=== PATIENT | male | born 1990 | race Caucasian/White ===

== ENCOUNTER 2017-12-28 20:59 | Emergency (ER) | payer MEDICAID ==
[~2017-12-28] VITALS: Ht 180.3 cm; Wt 122.5 kg
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
--- NOTE | 2017-12-28 21:23 | NUR ---
XRAY AT BEDSIDE.
[2017-12-28] MEDS ORDERED: NAPROXEN 500 MG TABLET ONE (21:41)
[2017-12-28] MEDS ORDERED: NAPROXEN 500 MG TABLET PO ONE (21:45)
[2017-12-28 21:57] VITALS: BP 137/76
--- NOTE | 2017-12-28 21:59 | NUR ---
Patient discharged to home in stable conditon WITH TAKING PATIENT HOME. Written and verbal after care instructions given. Patient verbalizes understanding of instructions. WALKED OUT OF ER WITH STEADY GAIT. NO DISTRESS NOTED
== END 2017-12-28 22:00 | disposition home or self-care (01) ==
LOC: ER 21:03
DX: R07.89 Other chest pain (principal); M54.5 Low back pain; F17.200 Nicotine dependence, unspecified, uncomplicated
CPT/HCPCS: 71045; 93005; A4663